=== PATIENT | female | born 1940 | race Caucasian/White ===

== ENCOUNTER 2017-09-10 08:36 | Outpatient (CLI) | payer MEDICARE ==
--- NOTE | 2017-09-10 15:28 | MRI ---
MR ANGIOGRAM BRAIN WITHOUT CONTRAST: HISTORY: Aneurysm. COMPARISON: Numerous prior examinations, both CT and MRI, most recently MR angiogram 01/04/15. TECHNIQUE: MR angiogram of the brain was performed without intravenous contrast using [id number] sequence. Three-D rendering is provided. MIP images performed. FINDINGS: Minimal artifact in the right anterior communicating artery aneurysmal coiling. [place] is without aneurysm, thrombosis, or significant narrowing. The basilar tip is normal. The A1 and A2 se gments, M1 and M2 segments, P1 and P2 segments were all normal. Adequate signal within the carotid arteries. There is extensive mucosal thickening of the left maxillary sinus incompletely evaluated on this exam . IMPRESSION: Unchanged MR angiogram of the [place] and vertebrobasilar system. No new aneurysm. No thro mbosis or significant narrowing. POS: GM
== END 2017-09-10 08:37 | disposition home or self-care (01) ==
LOC: MRI 08:36
PROVIDERS: ATTEND Neurological Surgery
DX: I67.1 Cerebral aneurysm, nonruptured (principal)
CPT/HCPCS: 70544

== ENCOUNTER 2019-01-25 11:33 | Emergency (ER) | payer MEDICARE ==
[~2019-01-25 11:33] MED LIST: ISOVUE-370 76%-LOCM 1 ML ONE
[2019-01-25 12:22] LABS: #Lymphocytes 0.7 thou/uL (1.20-3.40); #Monocytes 0.3 thou/uL (0.11-0.59); #Neutrophils 5.3 thou/uL (1.40-6.50); %Basophils 0.3 % (0.0-1.0); %Eosinophils 0.5 % (0.0-10.0); %Monocytes 4.1 % (0.0-10.0); %Neutrophils 84.2 % (42.0-75.0); Hemoglobin 13.2 g/dL (12.0-16.0); Mean Corpuscular Hemoglobin 28.4 pg (27.0-31.0); Mean Corpuscular Volume 83.5 fL (78.0-98.0); Mean Platelet Volume 7.5 fL (7.4-10.4); Platelet Count 259 thou/uL (130-400); RBC Distribution Width 14.2 % (11.5-14.5); Red Blood Cell (RBC) Count 4.64 mill/uL (4.20-5.40); White Blood Cell (WBC) Count 6.3 thou/uL (4.8-10.8)
[2019-01-25 12:54] LABS: ALT (SGPT) 30 U/L (8-55); AST (SGOT) 40 U/L (5-34); Albumin 4.4 g/dL (3.4-4.8); Alkaline Phosphatase 100 U/L (40-150); Anion Gap 14 mmol/L (10-20); BUN (Urea Nitrogen) 16 mg/dL (9.8-20.1); Bilirubin, Total 0.6 mg/dL (0.2-1.2); Calc. Creatinine Clearance 0 mL/min (70-130); Calcium 10.3 mg/dL (7.8-10.44); Carbon Dioxide 24 mmol/L (23-31); Chloride 100 mmol/L (98-107); Estimated GFR-MDRD 70; Globulin 3.2 g/dL (2.4-3.5); Glucose 124 mg/dL (83-110); Potassium 3.6 mmol/L (3.5-5.1); Protein, Total 7.6 g/dL (6.0-8.3); Sodium 134 mmol/L (136-145)
[2019-01-25] MEDS ORDERED: Ondansetron PF 4 MG/2 ML Vial ONE (12:58)
[2019-01-25] MEDS ORDERED: Morphine 4 MG/ML VIAL ONE (12:58)
[2019-01-25 13:38] LABS: CK (CPK) 22 U/L (29-168); Lipase 8 U/L (8-78)
--- NOTE | 2019-01-25 13:57 | CT ---
CTA HEAD WITH AND WITHOUT CONTRAST: Date: 01/25/19 Axial tomograms obtained through the head without IV enhancement. This was followed by CTA head with contrast following cerebral angio protocol with multiplanar reconstruction and 3D postprocessing. INDICATION: Headache. History of aneurysm. Comparison made to head CT of 06/12/11. Correlation made to MR angio brain of 09/10/17 which showed n o evidence of new aneurysm. FINDINGS: CT HEAD WITHOUT CONTRAST: Ventricles have normal size and position. Ventriculostomy tube enters via the right parietal lobe and enters the posterior horn on the right extending through the right lateral ventricle and with the ti p extending beyond the anterior horn on the right into the right frontal lobe parenchyma. Similar pos ition was noted on the prior CT. There is cortical lucency in the superior right frontal lobe cortex near the vertex which is new from the prior CT. 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 There is no evidence of hemorrhage. No mass or acute cortical infarct apparent. IMPRESSION: 1. Ventriculostomy catheter with position as described above. Ventricles are normal size. 2. Lucency seen in the subcortical white matter seen to the cortex of the superior frontal lobe near the vertex suggesting remote ischemic change. 3. No acute process. CTA HEAD: Intracranial internal carotid arteries are patent and symmetric. There are atherosclerotic changes in the cavernous portion of both ICAs. No significant stenosis. There is focal metallic artifact from a pparent radiopaque aneurysm coils at the junction of the A1 and A2 segments on the right producing si gnificant spray artifact obscuring this region. There is a tiny aneurysm at the junction of the ante rior communicator on the right. This tiny aneurysm measures approximately 2 mm. The A1 and A2 segment s are otherwise unremarkable. The middle cerebral arteries are unremarkable. Basilar artery is unremarkable. Posterior cerebrals ar e unremarkable. 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 This measures approximately 2.0 mm. This is posterior to dense coil material from prior aneurysmal coiling at this location. POS: OFF
--- NOTE | 2019-01-29 12:21 | EKG ---
Test Reason : Blood Pressure : / mmHG Vent. Rate : 061 BPM Atrial Rate : 061 BPM P-R Int : 188 ms QRS Dur : 138 ms QT Int : 460 ms P-R-T Axes : 073 -21 -36 degrees QTc Int : 463 ms Normal sinus rhythm Right bundle branch block Septal infarct , age undetermined T wave abnormality, consider lateral ischemia Abnormal ECG Confirmed by NALLELY DE LA ROSA, DELIA ([id number]), digital editor FABIOLA CARBAJAL ([id number]) on 01/29/2019 12:21:09 PM Referred By: Confirmed By:DELIA BROWNING MD
== END 2019-01-25 15:04 | disposition home or self-care (01) ==
LOC: ERS 11:33
DX: R51 Headache (principal); R11.2 Nausea with vomiting, unspecified; E78.5 Hyperlipidemia, unspecified; I10 Essential (primary) hypertension; Z86.73 Personal history of transient ischemic attack (TIA), and cerebral infarction without residual deficits
CPT/HCPCS: 36415; 70496; 80053; 82550; 83690; 84484; 85025; 93005; 96374; 96375; J2270; J2405; Q9966

== ENCOUNTER 2021-01-22 10:23 | Outpatient (CLI) | payer MEDICARE ==
[~2021-01-22 10:23] MED LIST changes: -ISOVUE-370 76%-LOCM 1 ML ONE; +Magnevist 469MG/ML 20 ML VIAL ONE
== END 2021-01-22 10:24 | disposition home or self-care (01) ==
LOC: BICMRI 10:23
PROVIDERS: ATTEND Nurse Practitioner Acute Care
DX: H53.2 Diplopia (principal); I67.1 Cerebral aneurysm, nonruptured
CPT/HCPCS: 70250; 70553; 82565; A9579

== ENCOUNTER 2021-01-29 09:41 | Outpatient (CLI) | payer MEDICARE | END 2021-01-29 09:42 | disposition home or self-care (01) | LOC: TBSIIMAG 09:41 | PROVIDERS: ATTEND Physician Assistant | DX: I67.1 Cerebral aneurysm, nonruptured (principal); Z98.2 Presence of cerebrospinal fluid drainage device | CPT/HCPCS: 70250 ==

== ENCOUNTER 2022-03-31 11:12 | Emergency (ER) | payer MEDICARE ==
[2022-03-31 12:09] LABS: #Lymphocytes 0.8 thou/uL (1.20-3.40); #Monocytes 0.4 thou/uL (0.11-0.59); #Neutrophils 4.5 thou/uL (1.40-6.50); %Basophils 0.2 % (0.0-1.0); %Eosinophils 0.5 % (0.0-10.0); %Lymphocytes 13.6 % (21.0-51.0); %Monocytes 6.2 % (0.0-10.0); %Neutrophils 79.6 % (42.0-75.0); Mean Corpuscular HGB CONC 32.8 g/dL (32.0-36.0); Mean Corpuscular Hemoglobin 28.7 pg (27.0-31.0); Mean Corpuscular Volume 87.7 fl (78.0-98.0); Mean Platelet Volume 8.1 fL (7.4-10.4); Platelet Count 219 10x3/uL (130-400); RBC Distribution Width 13.5 % (11.5-14.5); Red Blood Cell (RBC) Count 4.52 mill/uL (4.20-5.40); White Blood Cell (WBC) Count 5.6 10x3/uL (4.8-10.8)
[2022-03-31] MEDS ORDERED: Ondansetron PF 4 MG/2 ML Vial ONE (12:22)
[2022-03-31 12:28] LABS: ALT (SGPT) 18 U/L (8-55); AST (SGOT) 30 U/L (5-34); Alkaline Phosphatase 98 U/L (40-110); Anion Gap 14 mmol/L (10-20); BUN (Urea Nitrogen) 12 mg/dL (9.8-20.1); Bilirubin, Total 0.8 mg/dL (0.2-1.2); Calc. Creatinine Clearance 0 mL/min (70-130); Calcium 9.9 mg/dL (7.8-10.44); Carbon Dioxide 20 mmol/L (23-31); Chloride 108 mmol/L (98-107); Estimated GFR 78; Globulin 2.8 g/dL (2.4-3.5); Glucose 111 mg/dL (83-110); Lipase 8 U/L (8-78); Protein, Total 6.8 g/dL (5.8-8.1); Sodium 138 mmol/L (136-145)
[2022-03-31 14:13] LABS: Bacteria/HPF None Seen HPF (None Seen); Bilirubin Negative (Negative); Blood, Urine Negative (Negative); Clarity Clear (Clear); Glucose, Urine (Dipstick) Normal (Negative); Ketone, Urine Negative (Negative); Leukocyte Negative Leu/uL (Negative); Nitrite Negative (Negative); Protein, Urine (Dipstick) 50 mg/dL (Neg-Trace); RBC/HPF 0-3 HPF (0-3); Specific Gravity, Urine 1.024 (1.002-1.036); Squamous Epithelial 0-3 HPF (0-3); Urobilinogen Normal mg/dL (Less than 2); WBC/HPF 0-3 HPF (0-3); pH, Urine 6.5 (5.0-9.0)
[2022-03-31] MEDS ORDERED: Iopamidol-370 76% 500 ML 1 ML ONE (14:15)
== END 2022-03-31 16:51 | disposition home or self-care (01) ==
LOC: ERS 11:12
DX: R11.2 Nausea with vomiting, unspecified (principal); E78.5 Hyperlipidemia, unspecified; I10 Essential (primary) hypertension; Z79.82 Long term (current) use of aspirin; Z79.899 Other long term (current) drug therapy
CPT/HCPCS: 36415; 51701; 70450; 71045; 74177; 75809; 80053; 81003; 81015; 83690; 84484; 85025; 93005; 96374; J2405; Q9967

== ENCOUNTER 2022-07-14 00:09 | Inpatient (IN) | payer MEDICARE ==
[2022-07-14 00:54] LABS: #Lymphocytes 0.6 thou/uL (1.20-3.40); #Neutrophils 8.5 thou/uL (1.40-6.50); %Basophils 0.1 % (0.0-1.0); %Eosinophils 0.3 % (0.0-10.0); %Lymphocytes 5.7 % (21.0-51.0); %Monocytes 9.4 % (0.0-10.0); %Neutrophils 84.5 % (42.0-75.0); Hemoglobin 14.9 g/dL (12.0-16.0); Mean Corpuscular HGB CONC 32.9 g/dL (32.0-36.0); Mean Corpuscular Hemoglobin 28.6 pg (27.0-31.0); Mean Corpuscular Volume 86.8 fl (78.0-98.0); Mean Platelet Volume 8.9 fL (7.4-10.4); Platelet Count 186 10x3/uL (130-400); RBC Distribution Width 14.2 % (11.5-14.5); Red Blood Cell (RBC) Count 5.23 mill/uL (4.20-5.40); White Blood Cell (WBC) Count 10.1 10x3/uL (4.8-10.8)
[2022-07-14 01:16] LABS: ALT (SGPT) 30 U/L (8-55); AST (SGOT) 30 U/L (5-34); Alkaline Phosphatase 105 U/L (40-110); Anion Gap 16 mmol/L (10-20); BUN (Urea Nitrogen) 28 mg/dL (9.8-20.1); Bilirubin, Total 0.9 mg/dL (0.2-1.2); CK (CPK) 16 U/L (29-168); Calc. Creatinine Clearance 0 mL/min (70-130); Calcium 9.9 mg/dL (7.8-10.44); Carbon Dioxide 21 mmol/L (23-31); Chloride 109 mmol/L (98-107); Estimated GFR 60; Globulin 2.8 g/dL (2.4-3.5); Glucose 170 mg/dL (83-110); Lipase 10 U/L (8-78); Potassium 4.3 mmol/L (3.5-5.1); Protein, Total 6.8 g/dL (5.8-8.1); Sodium 142 mmol/L (136-145)
[2022-07-14 02:22] LABS: Bacteria/HPF 3+ HPF (None Seen); Bilirubin Negative (Negative); Blood, Urine Trace (Negative); Clarity Clear (Clear); Glucose, Urine (Dipstick) Normal (Negative); Ketone, Urine Trace mg/dL (Negative); Leukocyte Negative Leu/uL (Negative); Mucous/LPF 3+ LPF (<2+); Nitrite Negative (Negative); Protein, Urine (Dipstick) 200 mg/dL (Neg-Trace); RBC/HPF 0-3 HPF (0-3); Specific Gravity, Urine 1.036 (1.002-1.036); Squamous Epithelial 0-3 HPF (0-3); Urobilinogen Normal mg/dL (Less than 2)
[2022-07-14] MEDS ORDERED: Iopamidol-370 76% 500 ML 1 ML ONE (08:33)
[2022-07-14] MEDS ORDERED: cefTRIAXone\\ROCEPHIN 1 GM VIAL ONE (08:37)
[2022-07-14] MEDS ORDERED: Azithromycin 500 MG VIAL ONE (09:22)
[2022-07-14] MEDS ORDERED: Aspirin 325 MG TAB ONE (09:22)
[2022-07-14 09:44] LABS: Troponin I 0.053 ng/mL (< 0.028)
[2022-07-14] MEDS ORDERED: Acetaminophen 325 MG TAB PO PRN (11:22)
[2022-07-14] MEDS ORDERED: Bisacodyl 5 MG TAB PO PRN (11:26)
[2022-07-14] MEDS ORDERED: Bisacodyl 10 MG SUPP PR PRN (11:26)
[2022-07-14] MEDS ORDERED: Senokot S 8.6-50 MG TAB PO PRN (11:26)
[2022-07-14] MEDS ORDERED: Ondansetron ODT 4 MG TAB PO PRN (11:26)
[2022-07-14] MEDS ORDERED: Lorazepam 2 MG/ML VIAL SLOW IVP SCH (12:00)
[2022-07-14 14:33] VITALS: BMI 60.5
[2022-07-14] MEDS: Furosemide 40 MG/4 ML VIAL SLOW IVP SCH (16:59)
[2022-07-14] MEDS: Rosuvastatin 20 MG TAB PO SCH (22:27)
[2022-07-14] MEDS: Famotidine 20 MG TAB PO SCH (22:27)
[2022-07-14] MEDS: Metoprolol Tartrate 25 MG TAB PO SCH (22:27)
[2022-07-15 04:28] LABS: #Lymphocytes 0.7 thou/uL (1.20-3.40); #Monocytes 0.5 thou/uL (0.11-0.59); #Neutrophils 4.9 thou/uL (1.40-6.50); %Eosinophils 0.7 % (0.0-10.0); %Monocytes 8.8 % (0.0-10.0); %Neutrophils 79.6 % (42.0-75.0); Hemoglobin 14.6 g/dL (12.0-16.0); Mean Corpuscular Hemoglobin 28.7 pg (27.0-31.0); Mean Platelet Volume 8.2 fL (7.4-10.4); Platelet Count 188 10x3/uL (130-400); RBC Distribution Width 13.9 % (11.5-14.5); Red Blood Cell (RBC) Count 5.09 mill/uL (4.20-5.40); White Blood Cell (WBC) Count 6.1 10x3/uL (4.8-10.8)
[2022-07-15 04:54] LABS: Anion Gap 14 mmol/L (10-20); BUN (Urea Nitrogen) 21 mg/dL (9.8-20.1); Calc. Creatinine Clearance 94 mL/min (70-130); Calcium 10.1 mg/dL (7.8-10.44); Carbon Dioxide 22 mmol/L (23-31); Chloride 109 mmol/L (98-107); Estimated GFR 88; Glucose 105 mg/dL (83-110); Potassium 3.3 mmol/L (3.5-5.1); Sodium 142 mmol/L (136-145)
[2022-07-15] MEDS: Furosemide 40 MG/4 ML VIAL SLOW IVP SCH ×2 (05:41→14:49)
[2022-07-15] MEDS ORDERED: Potassium Chloride 20 MEQ TAB PO SCH (08:30)
[2022-07-15] MEDS: cefTRIAXone\\ROCEPHIN 2 GM in Sodium Chloride 0.9% 100 ML IVPB SCH (09:01)
[2022-07-15] MEDS: Famotidine 20 MG TAB PO SCH ×2 (09:02→21:33)
[2022-07-15] MEDS: Metoprolol Tartrate 25 MG TAB PO SCH ×2 (09:02→21:33)
[2022-07-15] MEDS: Clopidogrel Bisulfate 75 MG TAB PO SCH (09:02)
[2022-07-15] MEDS: Amlodipine 5 MG TAB PO SCH (09:02)
[2022-07-15 09:49] LABS: Troponin I 0.044 ng/mL (< 0.028)
[2022-07-15] MEDS: Azithromycin 500 MG in Sodium Chloride 0.9% 250 ML 250 ML IVPB SCH (09:59)
[2022-07-15] MEDS: Rosuvastatin 20 MG TAB PO SCH (21:33)
[2022-07-16 04:59] LABS: #Lymphocytes 0.7 thou/uL (1.20-3.40); #Monocytes 0.6 thou/uL (0.11-0.59); #Neutrophils 5.3 thou/uL (1.40-6.50); %Eosinophils 0.4 % (0.0-10.0); %Lymphocytes 10.8 % (21.0-51.0); %Monocytes 9.2 % (0.0-10.0); %Neutrophils 79.7 % (42.0-75.0); Hemoglobin 14.8 g/dL (12.0-16.0); Mean Corpuscular HGB CONC 33.3 g/dL (32.0-36.0); Mean Corpuscular Hemoglobin 28.6 pg (27.0-31.0); Mean Corpuscular Volume 85.8 fl (78.0-98.0); Mean Platelet Volume 8.9 fL (7.4-10.4); Platelet Count 186 10x3/uL (130-400); RBC Distribution Width 13.8 % (11.5-14.5); Red Blood Cell (RBC) Count 5.16 mill/uL (4.20-5.40); White Blood Cell (WBC) Count 6.6 10x3/uL (4.8-10.8)
[2022-07-16 05:28] LABS: Anion Gap 15 mmol/L (10-20); BUN (Urea Nitrogen) 29 mg/dL (9.8-20.1); Calc. Creatinine Clearance 85 mL/min (70-130); Calcium 10.6 mg/dL (7.8-10.44); Carbon Dioxide 21 mmol/L (23-31); Chloride 110 mmol/L (98-107); Estimated GFR 86; Glucose 114 mg/dL (83-110); Potassium 3.4 mmol/L (3.5-5.1); Sodium 143 mmol/L (136-145)
[2022-07-16] MEDS: Furosemide 40 MG/4 ML VIAL SLOW IVP SCH ×2 (06:10→13:54)
[2022-07-16] MEDS: Metoprolol Tartrate 25 MG TAB PO SCH ×2 (09:23→21:46)
[2022-07-16] MEDS: Famotidine 20 MG TAB PO SCH ×2 (09:24→21:46)
[2022-07-16] MEDS: Clopidogrel Bisulfate 75 MG TAB PO SCH (09:24)
[2022-07-16] MEDS: Amlodipine 5 MG TAB PO SCH (09:25)
[2022-07-16] MEDS: Azithromycin 500 MG in Sodium Chloride 0.9% 250 ML 250 ML IVPB SCH (09:29)
[2022-07-16] MEDS: cefTRIAXone\\ROCEPHIN 2 GM in Sodium Chloride 0.9% 100 ML IVPB SCH (09:29)
[2022-07-16 13:12] LABS: Albumin 3.7 g/dL (3.4-4.8); Calcium 10.3 mg/dL (7.8-10.44)
[2022-07-16] MEDS: Rosuvastatin 20 MG TAB PO SCH (21:46)
[2022-07-17 05:35] LABS: #Lymphocytes 0.8 thou/uL (1.20-3.40); #Monocytes 0.6 thou/uL (0.11-0.59); %Basophils 0.2 % (0.0-1.0); %Eosinophils 0.4 % (0.0-10.0); %Lymphocytes 11.2 % (21.0-51.0); %Monocytes 7.9 % (0.0-10.0); %Neutrophils 80.4 % (42.0-75.0); Hemoglobin 15.2 g/dL (12.0-16.0); Mean Corpuscular HGB CONC 33.2 g/dL (32.0-36.0); Mean Corpuscular Hemoglobin 28.5 pg (27.0-31.0); Mean Platelet Volume 9.3 fL (7.4-10.4); Platelet Count 199 10x3/uL (130-400); RBC Distribution Width 13.8 % (11.5-14.5); Red Blood Cell (RBC) Count 5.34 mill/uL (4.20-5.40); White Blood Cell (WBC) Count 7.5 10x3/uL (4.8-10.8)
[2022-07-17 05:56] LABS: Anion Gap 16 mmol/L (10-20); BUN (Urea Nitrogen) 37 mg/dL (9.8-20.1); Calc. Creatinine Clearance 80 mL/min (70-130); Calcium 10.8 mg/dL (7.8-10.44); Carbon Dioxide 22 mmol/L (23-31); Chloride 109 mmol/L (98-107); Estimated GFR 80; Glucose 105 mg/dL (83-110); Potassium 3.2 mmol/L (3.5-5.1); Sodium 144 mmol/L (136-145)
[2022-07-17] MEDS: Furosemide 40 MG/4 ML VIAL SLOW IVP SCH ×2 (06:32→16:01)
[2022-07-17] MEDS ORDERED: Potassium Chloride 20 MEQ TAB PO SCH (09:45)
[2022-07-17] MEDS: Clopidogrel Bisulfate 75 MG TAB PO SCH (09:54)
[2022-07-17] MEDS: Metoprolol Tartrate 25 MG TAB PO SCH ×2 (09:55→21:23)
[2022-07-17] MEDS: Amlodipine 5 MG TAB PO SCH (09:55)
[2022-07-17] MEDS: Famotidine 20 MG TAB PO SCH ×2 (09:55→21:23)
[2022-07-17] MEDS: cefTRIAXone\\ROCEPHIN 2 GM in Sodium Chloride 0.9% 100 ML IVPB SCH (09:56)
[2022-07-17] MEDS: Rosuvastatin 20 MG TAB PO SCH (21:25)
[2022-07-18 04:53] LABS: #Lymphocytes 0.8 thou/uL (1.20-3.40); #Monocytes 0.7 thou/uL (0.11-0.59); #Neutrophils 6.9 thou/uL (1.40-6.50); %Basophils 0.1 % (0.0-1.0); %Eosinophils 0.3 % (0.0-10.0); %Lymphocytes 9.7 % (21.0-51.0); %Monocytes 8.6 % (0.0-10.0); %Neutrophils 81.4 % (42.0-75.0); Mean Corpuscular HGB CONC 33.1 g/dL (32.0-36.0); Mean Corpuscular Volume 87.7 fl (78.0-98.0); Mean Platelet Volume 9.6 fL (7.4-10.4); Platelet Count 194 10x3/uL (130-400); RBC Distribution Width 13.8 % (11.5-14.5); Red Blood Cell (RBC) Count 5.52 mill/uL (4.20-5.40); White Blood Cell (WBC) Count 8.5 10x3/uL (4.8-10.8)
[2022-07-18 05:20] LABS: Anion Gap 21 mmol/L (10-20); BUN (Urea Nitrogen) 51 mg/dL (9.8-20.1); Calc. Creatinine Clearance 61 mL/min (70-130); Calcium 11.2 mg/dL (7.8-10.44); Carbon Dioxide 18 mmol/L (23-31); Chloride 110 mmol/L (98-107); Estimated GFR 58; Glucose 111 mg/dL (83-110); Potassium 3.7 mmol/L (3.5-5.1); Sodium 145 mmol/L (136-145)
[2022-07-18] MEDS: Furosemide 40 MG/4 ML VIAL SLOW IVP SCH (05:28)
[2022-07-18] MEDS ORDERED: Vancomycin 1 GM in Premix Bag 1 BAG IVPB SCH (09:00)
[2022-07-18] MEDS: cefTRIAXone\\ROCEPHIN 2 GM in Sodium Chloride 0.9% 100 ML IVPB SCH (09:19)
[2022-07-18] MEDS: Azithromycin 500 MG in Sodium Chloride 0.9% 250 ML 250 ML IVPB SCH (09:25)
[2022-07-18] MEDS: Amlodipine 5 MG TAB PO SCH (09:25)
[2022-07-18] MEDS: Metoprolol Tartrate 25 MG TAB PO SCH ×2 (09:25→21:18)
[2022-07-18] MEDS: Clopidogrel Bisulfate 75 MG TAB PO SCH (09:26)
[2022-07-18] MEDS: Dexamethasone 4 mg/ml Vial SLOW IVP SCH (09:26)
[2022-07-18] MEDS: Famotidine 20 MG TAB PO SCH ×2 (09:26→21:18)
[2022-07-18] MEDS: Furosemide 20 MG/2 ML VIAL SLOW IVP SCH (09:32)
[2022-07-18 11:03] LABS: Legionella Urinary Ag Negative (Negative)
[2022-07-18 11:04] LABS: Strep pneumo Urine Ag NEGATIVE (NEGATIVE)
[2022-07-18 11:55] LABS: ALT (SGPT) 27 U/L (8-55); AST (SGOT) 35 U/L (5-34); Albumin 3.6 g/dL (3.4-4.8); Alkaline Phosphatase 128 U/L (40-110); Bilirubin, Direct 0.3 mg/dL (0.1-0.3); Bilirubin, Total 0.6 mg/dL (0.2-1.2); Protein, Total 7.3 g/dL (5.8-8.1)
[2022-07-18] MEDS: VANCOMYCIN 1.25 GM/250 ML BAG 1.25 GM in Premix Bag 1 BAG IVPB SCH (12:48)
[2022-07-18] MEDS: Albumin 25% 25 GM/100 ML BOT IVPB SCH ×2 (14:15→17:18)
[2022-07-18] MEDS: Cefepime 2 GM in Sodium Chloride 0.9% 100 ML IVPB SCH (14:15)
[2022-07-18] MEDS: Rosuvastatin 20 MG TAB PO SCH (21:18)
[2022-07-19] MEDS: Cefepime 2 GM in Sodium Chloride 0.9% 100 ML IVPB SCH ×3 (00:20→23:26)
[2022-07-19] MEDS: VANCOMYCIN 1.25 GM/250 ML BAG 1.25 GM in Premix Bag 1 BAG IVPB SCH ×2 (00:20→12:58)
[2022-07-19] MEDS: Albumin 25% 25 GM/100 ML BOT IVPB SCH ×2 (01:30→05:15)
[2022-07-19 05:15] LABS: #Lymphocytes 0.5 thou/uL (1.20-3.40); #Monocytes 0.3 thou/uL (0.11-0.59); #Neutrophils 4.7 thou/uL (1.40-6.50); %Eosinophils 0.1 % (0.0-10.0); %Lymphocytes 9.2 % (21.0-51.0); %Monocytes 5.3 % (0.0-10.0); %Neutrophils 85.4 % (42.0-75.0); Hemoglobin 12.6 g/dL (12.0-16.0); Mean Corpuscular HGB CONC 32.4 g/dL (32.0-36.0); Mean Corpuscular Hemoglobin 28.2 pg (27.0-31.0); Mean Platelet Volume 9.3 fL (7.4-10.4); Platelet Count 158 10x3/uL (130-400); RBC Distribution Width 13.5 % (11.5-14.5); Red Blood Cell (RBC) Count 4.47 mill/uL (4.20-5.40); White Blood Cell (WBC) Count 5.5 10x3/uL (4.8-10.8)
[2022-07-19 05:28] LABS: Anion Gap 15 mmol/L (10-20); BUN (Urea Nitrogen) 54 mg/dL (9.8-20.1); Calc. Creatinine Clearance 73 mL/min (70-130); Calcium 11.2 mg/dL (7.8-10.44); Carbon Dioxide 22 mmol/L (23-31); Chloride 112 mmol/L (98-107); Estimated GFR 72; Glucose 111 mg/dL (83-110); Potassium 3.5 mmol/L (3.5-5.1); Sodium 145 mmol/L (136-145)
[2022-07-19] MEDS: Azithromycin 500 MG in Sodium Chloride 0.9% 250 ML 250 ML IVPB SCH (09:12)
[2022-07-19] MEDS: Dexamethasone 4 mg/ml Vial SLOW IVP SCH (09:13)
[2022-07-19] MEDS: Famotidine 20 MG TAB PO SCH ×2 (09:14→21:16)
[2022-07-19] MEDS: Metoprolol Tartrate 25 MG TAB PO SCH ×2 (09:14→21:17)
[2022-07-19] MEDS: Clopidogrel Bisulfate 75 MG TAB PO SCH (09:15)
[2022-07-19] MEDS: Amlodipine 5 MG TAB PO SCH (09:15)
[2022-07-19] MEDS: Furosemide 20 MG/2 ML VIAL SLOW IVP SCH (09:15)
[2022-07-19] MEDS: Ipratropium/Albuterol 3 ML NEB NEB SCH ×2 (15:36→18:20)
[2022-07-19] MEDS: Rosuvastatin 20 MG TAB PO SCH (21:17)
[2022-07-19 22:38] LABS: Vancomycin, Trough 25.2 ug/mL
[2022-07-20 05:03] LABS: #Lymphocytes 0.5 thou/uL (1.20-3.40); #Monocytes 0.4 thou/uL (0.11-0.59); #Neutrophils 8.6 thou/uL (1.40-6.50); %Basophils 0.4 % (0.0-1.0); %Eosinophils 0.1 % (0.0-10.0); %Lymphocytes 5.3 % (21.0-51.0); %Monocytes 4.2 % (0.0-10.0); %Neutrophils 90.1 % (42.0-75.0); Mean Corpuscular Hemoglobin 28.4 pg (27.0-31.0); Mean Corpuscular Volume 86.1 fl (78.0-98.0); Mean Platelet Volume 9.1 fL (7.4-10.4); Platelet Count 168 10x3/uL (130-400); RBC Distribution Width 13.4 % (11.5-14.5); Red Blood Cell (RBC) Count 4.21 mill/uL (4.20-5.40); White Blood Cell (WBC) Count 9.6 10x3/uL (4.8-10.8)
[2022-07-20 05:26] LABS: Anion Gap 14 mmol/L (10-20); BUN (Urea Nitrogen) 45 mg/dL (9.8-20.1); Calc. Creatinine Clearance 82 mL/min (70-130); Calcium 10.7 mg/dL (7.8-10.44); Carbon Dioxide 21 mmol/L (23-31); Chloride 111 mmol/L (98-107); Estimated GFR 82; Glucose 110 mg/dL (83-110); Potassium 3.5 mmol/L (3.5-5.1); Sodium 142 mmol/L (136-145)
[2022-07-20] MEDS: Ipratropium/Albuterol 3 ML NEB NEB SCH ×4 (08:48→18:45)
[2022-07-20] MEDS: Dexamethasone 4 mg/ml Vial SLOW IVP SCH (10:22)
[2022-07-20] MEDS: Azithromycin 500 MG in Sodium Chloride 0.9% 250 ML 250 ML IVPB SCH (10:22)
[2022-07-20] MEDS: Famotidine 20 MG TAB PO SCH ×2 (10:23→21:39)
[2022-07-20] MEDS: Metoprolol Tartrate 25 MG TAB PO SCH ×2 (10:23→21:39)
[2022-07-20] MEDS: Furosemide 20 MG/2 ML VIAL SLOW IVP SCH (10:23)
[2022-07-20] MEDS: Clopidogrel Bisulfate 75 MG TAB PO SCH (10:24)
[2022-07-20] MEDS: Amlodipine 5 MG TAB PO SCH (10:24)
[2022-07-20] MEDS: Cefepime 2 GM in Sodium Chloride 0.9% 100 ML IVPB SCH (12:05)
[2022-07-20] MEDS: Rosuvastatin 20 MG TAB PO SCH (21:39)
[2022-07-21] MEDS: Cefepime 2 GM in Sodium Chloride 0.9% 100 ML IVPB SCH ×2 (01:06→13:14)
[2022-07-21 07:58] LABS: Anion Gap 12 mmol/L (10-20); BUN (Urea Nitrogen) 42 mg/dL (9.8-20.1); Calc. Creatinine Clearance 81 mL/min (70-130); Carbon Dioxide 22 mmol/L (23-31); Chloride 112 mmol/L (98-107); Potassium 3.6 mmol/L (3.5-5.1); Sodium 142 mmol/L (136-145)
[2022-07-21 07:59] LABS: Calcium 10.5 mg/dL (7.8-10.44); Estimated GFR 81; Glucose 94 mg/dL (83-110)
[2022-07-21] MEDS: Ipratropium/Albuterol 3 ML NEB NEB SCH ×4 (08:45→19:20)
[2022-07-21] MEDS: Clopidogrel Bisulfate 75 MG TAB PO SCH (10:08)
[2022-07-21] MEDS: Metoprolol Tartrate 25 MG TAB PO SCH ×2 (10:08→20:21)
[2022-07-21] MEDS: Famotidine 20 MG TAB PO SCH ×2 (10:08→20:21)
[2022-07-21] MEDS: Dexamethasone 4 mg/ml Vial SLOW IVP SCH (10:09)
[2022-07-21] MEDS: Amlodipine 5 MG TAB PO SCH (10:09)
[2022-07-21] MEDS: Azithromycin 500 MG in Sodium Chloride 0.9% 250 ML 250 ML IVPB SCH (10:09)
[2022-07-21] MEDS: Furosemide 20 MG/2 ML VIAL SLOW IVP SCH (10:10)
[2022-07-21] MEDS ORDERED: Furosemide 20 MG TAB PO PRN (19:06)
[2022-07-21] MEDS: Rosuvastatin 20 MG TAB PO SCH (20:21)
[2022-07-22 05:36] LABS: Anion Gap 15 mmol/L (10-20); BUN (Urea Nitrogen) 39 mg/dL (9.8-20.1); Calc. Creatinine Clearance 78 mL/min (70-130); Calcium 10.2 mg/dL (7.8-10.44); Carbon Dioxide 18 mmol/L (23-31); Chloride 111 mmol/L (98-107); Estimated GFR 77; Glucose 115 mg/dL (83-110); Potassium 3.6 mmol/L (3.5-5.1); Sodium 140 mmol/L (136-145)
[2022-07-22] MEDS: Ipratropium/Albuterol 3 ML NEB NEB SCH (07:46)
[2022-07-22] MEDS: Metoprolol Tartrate 25 MG TAB PO SCH ×2 (09:29→21:25)
[2022-07-22] MEDS: Clopidogrel Bisulfate 75 MG TAB PO SCH (09:29)
[2022-07-22] MEDS: Dexamethasone 4 MG TAB PO SCH (09:30)
[2022-07-22] MEDS: Famotidine 20 MG TAB PO SCH ×2 (09:30→21:25)
[2022-07-22] MEDS: Azithromycin 500 MG in Sodium Chloride 0.9% 250 ML 250 ML IVPB SCH (09:30)
[2022-07-22] MEDS: Amlodipine 5 MG TAB PO SCH (09:30)
[2022-07-22] MEDS: Albuterol 200 PUFF (6.7GM INHALER) INH SCH ×3 (13:53→21:25)
[2022-07-22 16:55] LABS: SARS-CoV-2 NAA Rapid Test DETECTED (NotDetected)
[2022-07-22] MEDS: Rosuvastatin 20 MG TAB PO SCH (21:25)
[2022-07-23 05:32] LABS: Anion Gap 13 mmol/L (10-20); BUN (Urea Nitrogen) 35 mg/dL (9.8-20.1); Calc. Creatinine Clearance 81 mL/min (70-130); Calcium 10.6 mg/dL (7.8-10.44); Carbon Dioxide 22 mmol/L (23-31); Chloride 109 mmol/L (98-107); Estimated GFR 80; Glucose 100 mg/dL (83-110); Potassium 3.9 mmol/L (3.5-5.1); Sodium 140 mmol/L (136-145)
[2022-07-23] MEDS: Albuterol 200 PUFF (6.7GM INHALER) INH SCH ×2 (09:14→12:18)
[2022-07-23] MEDS: Clopidogrel Bisulfate 75 MG TAB PO SCH (09:15)
[2022-07-23] MEDS: Metoprolol Tartrate 25 MG TAB PO SCH (09:15)
[2022-07-23] MEDS: Dexamethasone 4 MG TAB PO SCH (09:15)
[2022-07-23] MEDS: Famotidine 20 MG TAB PO SCH (09:16)
[2022-07-23] MEDS: Amlodipine 5 MG TAB PO SCH (09:16)
[2022-07-23 12:13] VITALS: BP 136/81; TEMP 97.3
== END 2022-07-23 13:48 | DRG 177 ==
LOC: ERS 00:09 → ERHOLD 09:12 → OBSVTOIN 11:22 → 2NO 13:32
PROVIDERS: ADMIT Hospitalist; ATTEND Internal Medicine
DX: U07.1 COVID-19 (principal); G93.41 Metabolic encephalopathy; I21.A1 Myocardial infarction type 2; J12.82 Pneumonia due to coronavirus disease 2019; J96.01 Acute respiratory failure with hypoxia; I50.21 Acute systolic (congestive) heart failure; J15.9 Unspecified bacterial pneumonia; J44.0 Chronic obstructive pulmonary disease with (acute) lower respiratory infection; I25.10 Atherosclerotic heart disease of native coronary artery without angina pectoris; Z20.822 Contact with and (suspected) exposure to COVID-19; I48.91 Unspecified atrial fibrillation; I11.0 Hypertensive heart disease with heart failure; E87.6 Hypokalemia; E83.52 Hypercalcemia; E78.5 Hyperlipidemia, unspecified; G93.89 Other specified disorders of brain; Z90.710 Acquired absence of both cervix and uterus; Z95.1 Presence of aortocoronary bypass graft; Z86.73 Personal history of transient ischemic attack (TIA), and cerebral infarction without residual deficits; Z79.899 Other long term (current) drug therapy
CPT/HCPCS: 36415; 51701; 70450; 70551; 71045; 71275; 80048; 80053; 80202; 81003; 81015; 82040; 82140; 82533; 82550; 82553; 83605; 83690; 83880; 84484; 85025; 87040; 87081; 87086; 87449; 87899; 93005; 93306; 94640; 95816; 95819; 95957; 96365; 96367; G0378; J0456; J0692; J0696; J1100; J1650; J1940; J3370; J3490; J7050; J7620; J8540; P9047; Q9967; U0002